=== PATIENT | female | born 1980 | race Caucasian/White ===

== ENCOUNTER 2020-03-05 11:31 | Emergency (ER) | payer OTHER ==
[2020-03-05 11:56] LABS: BASOPHILS % (AUTO) 0.4 % (0.0-5.0); EOSINOPHILS % (AUTO) 0.4 % (0.0-8.0); HEMATOCRIT 35.7 % (36-48); LYMPHOCYTES % (AUTO) 15.7 % (21.0-51.0); MEAN CORPUSCULAR HGB CONC 32.8 g/dL (32.0-36.0); MEAN CORPUSCULAR VOLUME 82.3 fL (79-99); NEUTROPHILS % (AUTO) 78.2 % (40.0-77.0); PLATELET COUNT (AUTO) 315 K/uL (130-400); RED BLOOD CELL COUNT(AUTO) 4.34 MIL/uL (4.00-5.50); WHITE BLOOD COUNT (AUTO) 7.7 K/uL (4.8-10.8)
[2020-03-05] MEDS ORDERED: ONDANSETRON HCL 4 MG/2 ML VIAL ONE ×2 (11:57→12:42)
[2020-03-05] MEDS ORDERED: FAMOTIDINE/PF 20 MG/2 ML VIAL IV ONE ×2 (11:58→12:43)
[2020-03-05 12:12] LABS: INR 0.96 (0.85-1.15); PARTIAL THROMBOPLASTIN TIME 24.2 SEC (26.3-35.5); PROTHROMBIN TIME 10.4 SEC (9.6-11.6)
[2020-03-05 12:18] LABS: ALANINE AMINOTRANSFERASE 16 U/L (12-78); ALBUMIN 4.1 g/dL (3.5-5.0); ASPARTATE AMINOTRANSFERASE 15 U/L (10-37); BILIRUBIN,TOTAL 0.9 mg/dL (0.2-1.0); CARBON DIOXIDE 26 mmol/L (21-32); CHLORIDE 103 mmol/L (101-111); CREATININE 0.7 mg/dL (0.5-1.5); GLOMERULAR FILTR. RATE CALC 100 mL/min (>60); GLUCOSE,RANDOM 94 mg/dL (70-105); LIPASE 145 U/L (114-286); POTASSIUM 3.6 mmol/L (3.5-5.1); SODIUM SERUM 138 mmol/L (136-145); TOTAL PROTEIN, SERUM 7.5 g/dL (6.0-8.3); UREA NITROGEN, BLOOD 8 mg/dL (7-18)
[2020-03-05 13:36] LABS: APPEARANCE,URINE Clear (CLEAR); BILIRUBIN,URINE Negative (NEGATIVE); COLOR,URINE Yellow (YELLOW); GLUCOSE, URINE (UA) Negative (NEGATIVE); KETONES,URINE Negative (NEGATIVE); LEUKOCYTE ESTERASE ,URINE Trace (NEGATIVE); NITRATE,URINE Negative (NEGATIVE); OCCULT BLOOD,URINE Trace (NEGATIVE); PROTEIN,URINE Negative (NEGATIVE); UROBILINOGEN,URINE 0.2 mg/dL (0.2-1.0)
[2020-03-05 13:40] LABS: HCG,QUAL RESULT NEGATIVE (NEGATIVE)
[2020-03-05 13:51] LABS: BACTERIA,URINE Rare /HPF (None Seen); MUCUS,URINE Rare LPF (None Seen); RBC,URINE 0-1 /HPF (0-1); SQUAMOUS EPITHELIAL CELL,UR Rare /HPF (0-2); WBC,URINE 0-1 /HPF (0-1)
[2020-03-05] MEDS ORDERED: CALCIUM GLUCONATE 1 GM/10 ML VIAL IV ONE (14:58)
[2020-03-05 15:30] LABS: MAGNESIUM 1.6 mg/dL (1.80-2.40)
[2020-03-05] MEDS ORDERED: MAGNESIUM OXIDE 400 MG TABLET PO ONE (15:51)
[2020-03-05] MEDS ORDERED: ACETAMINOPHEN 325 MG TAB ONE (15:56)
[2020-03-05] MEDS ORDERED: DICYCLOMINE HCL 20 MG TAB ONE (16:47)
== END 2020-03-05 17:38 | disposition home or self-care (01) ==
LOC: EDH 11:31
DX: K52.9 Noninfective gastroenteritis and colitis, unspecified (principal); E83.51 Hypocalcemia; Z98.51 Tubal ligation status
CPT/HCPCS: 36415; 76705; 80053; 81001; 81025; 82330; 83690; 83735; 85025; 85610; 85730; 96361; 96365; 96366; 96375; 99285; J0610; J2405 ×2; J3490 ×2